=== PATIENT | female | born 1990 | race African-American/Black ===

== ENCOUNTER 2021-06-22 08:14 | Emergency (ER) | payer SELFPAY | END 2021-06-22 19:26 | disposition home or self-care (01) | LOC: CSHERS 08:14 | DX: U07.1 COVID-19 (principal) | CPT/HCPCS: 99284 ==

== ENCOUNTER 2021-11-27 07:44 | Emergency (ER) | payer SELFPAY ==
[2021-11-27] MEDS ORDERED: Ketorolac Tromethamine 30 MG/ML VIAL ONE (08:08)
== END 2021-11-27 08:14 | disposition home or self-care (01) ==
LOC: CSHERS 07:44
DX: J06.9 Acute upper respiratory infection, unspecified (principal)
CPT/HCPCS: 96372; 99283; J1885

== ENCOUNTER 2022-12-09 12:07 | Emergency (ER) | payer SELFPAY ==
[2022-12-09] MEDS ORDERED: Ketorolac Tromethamine 30 MG/ML VIAL ONE (12:37)
[2022-12-09 13:35] LABS: SARS-CoV-2 NAA Rapid Test Not Detected (NotDetected)
== END 2022-12-09 14:14 | disposition home or self-care (01) ==
LOC: CSHERS 12:07
DX: B34.9 Viral infection, unspecified (principal); K04.7 Periapical abscess without sinus; K02.9 Dental caries, unspecified
CPT/HCPCS: 71045; 87081; 87430; 96372; J1885

== ENCOUNTER 2023-11-19 12:25 | Emergency (ER) | payer BC ==
[2023-11-19] MEDS ORDERED: Ketorolac Tromethamine 30 MG (1 mL) VIAL ONE (13:21)
[2023-11-19] MEDS ORDERED: Metoclopramide HCl 10 MG (2 mL) VIAL ONE (13:21)
[2023-11-19 13:27] LABS: #Basophils 0.04 10x3/uL (0.0-0.2); #Eosinphils 0.24 10x3/uL (0.0-0.5); #Monocytes 0.45 10x3/uL (0.0-1.1); #Neutrophils 4.87 10x3/uL (1.5-8.4); %Basophils 0.5 % (0.0-2.0); %Eosinophils 2.7 % (0.0-6.0); %Lymphocytes 35.5 % (18.0-47.0); %Monocytes 5.2 % (0.0-10.0); %Neutrophils 55.8 % (40.0-75.0); Hematocrit 37.2 % (34.9-44.5); Hemoglobin 13.1 g/dL (12.0-15.5); Mean Corpuscular HGB CONC 35.2 g/dL (32.0-36.0); Mean Corpuscular Hemoglobin 32.7 pg (27.0-33.0); Mean Corpuscular Volume 92.8 fl (81.6-98.3); Mean Platelet Volume 10.5 fl (7.4-10.4); Platelet Count 297 10x3/uL (150-450); RBC Distribution Width 12.9 % (11.5-14.5); Red Blood Cell (RBC) Count 4.01 10x6/uL (3.90-5.03); White Blood Cell (WBC) Count 8.7 10x3/uL (3.5-10.5)
[2023-11-19 14:06] LABS: ALT (SGPT) 16 U/L (8-55); AST (SGOT) 15 U/L (5-34); Albumin 3.6 g/dL (3.5-5.0); Alkaline Phosphatase 100 U/L (40-110); Anion Gap 10 mmol/L (10-20); BUN (Urea Nitrogen) 6 mg/dL (7.0-18.7); Bilirubin, Total 0.4 mg/dL (0.2-1.2); Calc. Creatinine Clearance 0 mL/min (70-130); Calcium 9.1 mg/dL (7.8-10.44); Carbon Dioxide 24 mmol/L (22-29); Chloride 111 mmol/L (98-107); Estimated GFR 111; Globulin 2.3 g/dL (2.4-3.5); Glucose 76 mg/dL (70-105); Potassium 4.1 mmol/L (3.5-5.1); Protein, Total 5.9 g/dL (6.0-8.3); Sodium 141 mmol/L (136-145); Troponin I Less than 0.010 ng/mL (< 0.028)
== END 2023-11-19 15:41 | disposition home or self-care (01) ==
LOC: CSHERS 12:25
DX: R07.89 Other chest pain (principal); B34.9 Viral infection, unspecified
CPT/HCPCS: 71045; 71275; 80053; 84484; 85025; 85379; 93005; 96365; 96375; J1885; J2765

== ENCOUNTER 2024-01-14 15:38 | Emergency (ER) | payer OTHER, SELFPAY ==
[2024-01-14] MEDS ORDERED: Ketorolac Tromethamine 30 MG (1 mL) VIAL ONE (16:06)
== END 2024-01-14 16:41 | disposition home or self-care (01) ==
LOC: CSHERS 15:38
DX: K08.89 Other specified disorders of teeth and supporting structures (principal); I10 Essential (primary) hypertension
CPT/HCPCS: 96372; 99282; J1885

== ENCOUNTER 2024-04-09 13:49 | Emergency (ER) | payer OTHER ==
[2024-04-09] MEDS ORDERED: diphenhydrAMINE 50 MG/ML VIAL ONE (14:50)
[2024-04-09] MEDS ORDERED: Prochlorperazine 10 MG/2 ML VIAL ONE (14:50)
[2024-04-09] MEDS ORDERED: Ketorolac Tromethamine 30 MG (1 mL) VIAL ONE (14:51)
[2024-04-09] MEDS ORDERED: Dexamethasone 10 MG/ML VIAL ONE (14:51)
[2024-04-09] MEDS ORDERED: Acetaminophen 500 MG TAB ONE (15:09)
== END 2024-04-09 15:55 | disposition home or self-care (01) ==
LOC: CSHERS 13:49
DX: G43.909 Migraine, unspecified, not intractable, without status migrainosus (principal); I10 Essential (primary) hypertension; Z79.899 Other long term (current) drug therapy; Z87.891 Personal history of nicotine dependence
CPT/HCPCS: 96374; 96375; J0780; J1100; J1200; J1885

== ENCOUNTER 2024-05-24 18:46 | Emergency (ER) | payer OTHER ==
[2024-05-24] MEDS ORDERED: Ketorolac Tromethamine 30 MG (1 mL) VIAL ONE (21:09)
[2024-05-24 21:37] LABS: #Basophils 0.04 10x3/uL (0.0-0.2); #Eosinophils 0.37 10x3/uL (0.0-0.5); #Monocytes 0.51 10x3/uL (0.0-1.1); %Basophils 0.6 % (0.0-2.0); %Eosinophils 5.9 % (0.0-6.0); %Monocytes 8.2 % (0.0-10.0); Hematocrit 36.9 % (34.9-44.5); Hemoglobin 12.8 g/dL (12.0-15.5); Mean Corpuscular HGB CONC 34.7 g/dL (32.0-36.0); Mean Corpuscular Hemoglobin 31.7 pg (27.0-33.0); Mean Corpuscular Volume 91.3 fL (81.6-98.3); Mean Platelet Volume 10.5 fL (7.4-10.4); Platelet Count 292 10x3/uL (150-450); RBC Distribution Width 12.9 % (11.5-14.5); Red Blood Cell (RBC) Count 4.04 10x6/uL (3.90-5.03); White Blood Cell (WBC) Count 6.2 10x3/uL (3.5-10.5)
[2024-05-24 21:58] LABS: ALT (SGPT) 15 U/L (8-55); AST (SGOT) 12 U/L (5-34); Albumin 3.5 g/dL (3.5-5.0); Alkaline Phosphatase 110 U/L (40-110); Anion Gap 9 mmol/L (10-20); BUN (Urea Nitrogen) 8 mg/dL (7.0-18.7); Bilirubin, Total 0.4 mg/dL (0.2-1.2); CK (CPK) 135 U/L (29-168); Calc. Creatinine Clearance 0 mL/min (70-130); Calcium 9.6 mg/dL (7.8-10.44); Carbon Dioxide 29 mmol/L (22-29); Chloride 108 mmol/L (98-107); Estimated GFR 92; Globulin 3.2 g/dL (2.4-3.5); Glucose 87 mg/dL (70-105); Protein, Total 6.7 g/dL (6.0-8.3); Sodium 142 mmol/L (136-145)
[2024-05-24 22:42] LABS: Bilirubin Neg (Negative); Blood, Urine 10 (Negative); Clarity Cloudy (Clear); Glucose, Urine (Dipstick) Normal (Negative); Ketone, Urine Negative (Negative); Leukocyte 500 (Negative); Nitrite Negative (Negative); Protein, Urine (Dipstick) 30 mg/dl (Neg-Trace); pH, Urine 6.5 (5.0-9.0)
[2024-05-24] MEDS ORDERED: Cephalexin 250 MG CAP ONE (22:51)
[2024-05-24 23:19] LABS: Bacteria/HPF 4+ HPF (None Seen); CAUTI Indications for Culture Pelvic or flank pain; RBC/HPF 0-3 HPF (0-3); Squamous Epithelial 0-3 HPF (0-3)
[2024-05-24 23:20] LABS: Urine Culture Reflex Yes Yes
== END 2024-05-24 22:53 | disposition home or self-care (01) ==
LOC: CSHERS 18:46
DX: N39.0 Urinary tract infection, site not specified (principal); I10 Essential (primary) hypertension; Z55.0 Illiteracy and low-level literacy; Z87.891 Personal history of nicotine dependence
CPT/HCPCS: 36415; 80053; 81001; 82550; 83735; 84443; 85025; 87077; 87086; 87186; 96372; 99284; J1885

== ENCOUNTER 2024-06-07 20:59 | Emergency (ER) | payer OTHER ==
[2024-06-08 03:15] LABS: Anion Gap 10 mmol/L (10-20); BUN (Urea Nitrogen) 8 mg/dL (7.0-18.7); Calc. Creatinine Clearance 0 mL/min (70-130); Calcium 9.3 mg/dL (7.8-10.44); Carbon Dioxide 24 mmol/L (22-29); Chloride 111 mmol/L (98-107); Estimated GFR 99; Glucose 98 mg/dL (70-105); Potassium 3.8 mmol/L (3.5-5.1); Sodium 141 mmol/L (136-145)
== END 2024-06-08 04:11 | disposition home or self-care (01) ==
LOC: CSHERS 20:59
DX: I10 Essential (primary) hypertension (principal); R60.0 Localized edema; Z87.891 Personal history of nicotine dependence
CPT/HCPCS: 36415; 80048; 99283

== ENCOUNTER 2024-07-06 19:24 | Emergency (ER) | payer OTHER ==
[2024-07-06] MEDS ORDERED: Ketorolac Tromethamine 30 MG (1 mL) VIAL ONE (20:57)
[2024-07-06 21:27] LABS: Bilirubin Neg (Negative); Blood, Urine Negative (Negative); Clarity Cloudy (Clear); Glucose, Urine (Dipstick) Normal (Negative); Ketone, Urine Negative (Negative); Leukocyte 500 (Negative); Nitrite Negative (Negative); Protein, Urine (Dipstick) 15 mg/dl (Neg-Trace); Urobilinogen Normal mg/dL (Less than 2)
[2024-07-06 21:32] LABS: #Basophils 0.05 10x3/uL (0.0-0.2); #Eosinophils 0.19 10x3/uL (0.0-0.5); #Monocytes 0.55 10x3/uL (0.0-1.1); #Neutrophils 3.56 10x3/uL (1.5-8.4); %Basophils 0.6 % (0.0-2.0); %Eosinophils 2.4 % (0.0-6.0); %Lymphocytes 43.8 % (18.0-47.0); %Monocytes 7.1 % (0.0-10.0); %Neutrophils 45.8 % (40.0-75.0); Hematocrit 41.4 % (34.9-44.5); Mean Corpuscular HGB CONC 33.8 g/dL (32.0-36.0); Mean Corpuscular Hemoglobin 30.5 pg (27.0-33.0); Mean Corpuscular Volume 90.2 fL (81.6-98.3); Mean Platelet Volume 10.6 fL (7.4-10.4); Platelet Count 297 10x3/uL (150-450); RBC Distribution Width 13.2 % (11.5-14.5); Red Blood Cell (RBC) Count 4.59 10x6/uL (3.90-5.03); White Blood Cell (WBC) Count 7.77 10x3/uL (3.5-10.5)
[2024-07-06 21:35] LABS: Bacteria/HPF 4+ HPF (None Seen); CAUTI Indications for Culture Pelvic or flank pain; RBC/HPF 0-3 HPF (0-3); Squamous Epithelial 0-3 HPF (0-3)
[2024-07-06 21:37] LABS: Urine Culture Reflex Yes Yes
[2024-07-06 21:49] LABS: BHCG - Serum Negative (NEGATIVE); Pregs Control Background? CLEAR/WHITE (CLR/WHITE); Pregs Control Bar Appear? YES (CONTROL BAR)
[2024-07-06 21:57] LABS: ALT (SGPT) 14 U/L (8-55); AST (SGOT) 13 U/L (5-34); Albumin 3.9 g/dL (3.5-5.0); Alkaline Phosphatase 107 U/L (40-110); Anion Gap 11 mmol/L (10-20); BUN (Urea Nitrogen) 8 mg/dL (7.0-18.7); Bilirubin, Total 0.3 mg/dL (0.2-1.2); CK (CPK) 124 U/L (29-168); Calc. Creatinine Clearance 0 mL/min (70-130); Calcium 9.9 mg/dL (7.8-10.44); Carbon Dioxide 27 mmol/L (22-29); Chloride 107 mmol/L (98-107); Estimated GFR 96; Globulin 3.1 g/dL (2.4-3.5); Glucose 102 mg/dL (70-105); Lipase 161 U/L (8-78); Potassium 4.1 mmol/L (3.5-5.1); Sodium 141 mmol/L (136-145)
[2024-07-06 22:03] LABS: Troponin I Less than 0.010 ng/mL (< 0.028)
== END 2024-07-06 22:44 | disposition home or self-care (01) ==
LOC: CSHERS 19:24
DX: B34.9 Viral infection, unspecified (principal); N39.0 Urinary tract infection, site not specified; I10 Essential (primary) hypertension; Z87.891 Personal history of nicotine dependence
CPT/HCPCS: 71045; 80053; 81001; 82550; 83690; 83735; 84484; 84703; 85025; 87077; 87086; 87186; 87428; 93005; 96374; J1885

== ENCOUNTER 2025-03-12 16:45 | Emergency (ER) | payer OTHER ==
[2025-03-12] MEDS ORDERED: Ketorolac Tromethamine 30 MG (1 mL) VIAL ONE (17:11)
== END 2025-03-12 17:21 | disposition home or self-care (01) ==
LOC: CSHERS 16:45
DX: K08.89 Other specified disorders of teeth and supporting structures (principal); F17.210 Nicotine dependence, cigarettes, uncomplicated; I10 Essential (primary) hypertension; Z86.718 Personal history of other venous thrombosis and embolism
CPT/HCPCS: 96372; 99282; J1885